=== PATIENT | female | born 1945 | race Caucasian/White ===

== ENCOUNTER 2018-08-19 17:51 | Inpatient (IN) | payer MEDICARE, OTHER ==
[~2018-08-19] VITALS: Ht 157.5 cm; Wt 70.8 kg
[2018-08-19] MEDS ORDERED: ACETAMINOPHEN 325 MG TABLET PO PRN (22:00)
[2018-08-19] MEDS ORDERED: MAGNESIUM HYDROXIDE 30 ML UDC PO PRN (22:00)
[2018-08-19] MEDS ORDERED: CYCL5TAB (22:20)
[2018-08-19] MEDS ORDERED: TRAM50TA2 (22:20)
[2018-08-19] MEDS ORDERED: ARIP10TA17 (22:20)
[2018-08-19] MEDS ORDERED: TRAZ-213 (22:20)
[2018-08-19] MEDS ORDERED: ALPR0.5T8 (22:20)
[2018-08-19] MEDS ORDERED: ALEN70TA45 (22:20)
[2018-08-19] MEDS ORDERED: DICL100G16 (22:20)
[2018-08-19] MEDS ORDERED: NAPR-1009 (22:20)
[2018-08-19] MEDS ORDERED: OXYC5TAB3 (22:20)
[2018-08-19] MEDS ORDERED: MODA100T14 (22:20)
[2018-08-19] MEDS ORDERED: LISD10CA (22:20)
[2018-08-19] MEDS ORDERED: BUPR100T5 (22:20)
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
--- NOTE | 2018-08-20 05:53 | NUR ---
GPS/RN DR. SIEGEL NOTIFIED VIA [employer] GROUP EXCHANGE OF ADMISSION. MEDICATIONS ARE IN THE SYSTEM READY TO BE RECONCILED.
[2018-08-20] MEDS: LORAZEPAM 0.5 MG TABLET PO PRN (06:44)
[2018-08-20 07:06] LABS: BASOPHILS % (AUTO) 0.7 % (0.0-2.0); EOSINOPHILS % (AUTO) 2.2 % (0.0-6.0); HEMATOCRIT 41 % (33-45); HEMOGLOBIN 13.6 g/dL (11.5-14.8); LYMPHOCYTES # (AUTO) 1.8 /CMM (0.8-4.8); LYMPHOCYTES % (AUTO) 33.3 % (20.0-44.0); MEAN CORPUSCULAR HGB CONC 33 g/dl (31.0-36.0); MEAN CORPUSCULAR VOLUME 97 fL (82-100); MONOCYTES # (AUTO) 0.5 /CMM (0.1-1.30); NEUTROPHILS # (AUTO) 2.9 /CMM (1.8-8.9); NEUTROPHILS % (AUTO) 54.8 % (43.0-81.0); PLATELET COUNT (AUTO) 280 /CMM (150-450); RDW COEFFICIENT OF VARIATION 14.1 (11.5-15.0); RED BLOOD CELL COUNT(AUTO) 4.22 MIL/uL (4.0-5.2); WHITE BLOOD COUNT (AUTO) 5.3 K/uL (4.3-11.0)
[2018-08-20 07:19] LABS: CARBON DIOXIDE 26 mmol/L (21-32); CHLORIDE 107 mmol/L (98-107); CREATININE 0.9 mg/dL (0.6-1.3); GLUCOSE 105 mg/dL (74-106); POTASSIUM 3.4 mmol/L (3.5-5.1); SODIUM SERUM 142 mmol/L (136-145); UREA NITROGEN, BLOOD 11 mg/dL (7-18)
[2018-08-20 07:23] LABS: ALBUMIN 3.2 g/dL (3.4-5.0); BILIRUBIN,DIRECT 0.1 mg/dL (0.0-0.2); BILIRUBIN,TOTAL 0.5 mg/dL (0.2-1.0); TOTAL PROTEIN, SERUM 6.6 g/dL (6.4-8.2)
[2018-08-20 08:00] VITALS: BP 136/71
[2018-08-20] MEDS ORDERED: POTASSIUM CHLORIDE 20 MEQ TAB.PRT.SR PO SCH (10:00)
[2018-08-20 16:00] VITALS: BP_SYST 121; BP_SYST 129; BP_DIAS 52; BP_DIAS 75
[2018-08-20] MEDS ORDERED: risperiDONE 1 MG TABLET PO SCH (17:30)
--- NOTE | 2018-08-20 19:30 | NUR ---
RECEIVED PATIENT IN BED. AO X 3, ABLE TO MAKE NEEDS KNOWN. NO ACUTE DISTRESS NOTED. DENIES ANY PAIN AT THIS TIME. SAFETY REMINDERS GIVEN. ON LOW BED WITH BILATERAL UPPER SIDE RAILS UP. CALL SUBRAMANIAN WITHIN EASY REACH. WILL CONTINUE TO MONITOR.
[2018-08-20 19:46] VITALS: BP 120/81
[2018-08-20 20:00] VITALS: BP 120/81
[2018-08-20] MEDS: MIRTAZAPINE 15 MG TABLET PO SCH (22:40)
--- NOTE | 2018-08-21 06:09 | NUR ---
PATIENT ASLEEP, EASILY AROUSABLE. RESPIRATIONS EVEN. NO SIGNS OF PAIN NOTED. DUE MED GIVEN WITH NO ASE NOTED. NEEDS ATTENDED. SAFETY PRECAUTIONS AND COMFORT MEASURES IN PLACE. WILL GIVE REPORT TO DAY SHIFT FOR CONTINUITY OF CARE.
[2018-08-21 06:57] LABS: CALCIUM, SERUM 9.1 mg/dL (8.5-10.1); CARBON DIOXIDE 29 mmol/L (21-32); CHLORIDE 110 mmol/L (98-107); CREATININE 0.9 mg/dL (0.6-1.3); GLUCOSE 89 mg/dL (74-106); POTASSIUM 4.2 mmol/L (3.5-5.1); SODIUM SERUM 145 mmol/L (136-145); UREA NITROGEN, BLOOD 8 mg/dL (7-18)
[2018-08-21 08:00] VITALS: BP 152/98
[2018-08-21] MEDS: risperiDONE 1 MG TABLET PO SCH ×2 (08:23→21:14)
[2018-08-21] MEDS: LORAZEPAM 0.5 MG TABLET PO PRN (08:23)
[2018-08-21] MEDS ORDERED: TRAMADOL HCL 50 MG TABLET PO PRN (14:00)
--- NOTE | 2018-08-21 14:25 | NUR ---
Initial Discharge Plan: Pt currently lives alone in an apartment located at [address] [place] [address], [address] [address]; ([phone]). Per pt, she is scared to return there if her neighbor is still there and would like to be placed in a facility. SW will work with the pt and the MD regarding appropriate discharge planning. SW will form a safe and proper discharge.
[2018-08-21 16:00] VITALS: BP 131/77
[2018-08-21 20:21] VITALS: BP 106/65
[2018-08-21] MEDS: MIRTAZAPINE 15 MG TABLET PO SCH (21:14)
[2018-08-21] MEDS: TEMAZEPAM 7.5 MG CAPSULE PO PRN (22:12)
[2018-08-22 08:00] VITALS: BP 134/89
[2018-08-22] MEDS: risperiDONE 1 MG TABLET PO SCH ×2 (08:58→21:17)
--- NOTE | 2018-08-22 12:34 | NUR ---
SW met with the pt who stated that she is interested in being discharged to a intermediate facility. Pt stated that she wants the SW to reach out to her contact center associate, Glory ([phone]).
--- NOTE | 2018-08-22 12:37 | NUR ---
ABDULAZIZ called the pt's friend, Glory ([phone]), and left a message on her voicemail asking for a call back.
[2018-08-22 16:00] VITALS: BP 115/79
[2018-08-22] MEDS: LORAZEPAM 1 MG TABLET PO PRN (16:38)
[2018-08-22 19:49] VITALS: BP 97/64
[2018-08-22] MEDS: MIRTAZAPINE 15 MG TABLET PO SCH (21:17)
[2018-08-22] MEDS: TEMAZEPAM 7.5 MG CAPSULE PO PRN (23:41)
[2018-08-23 08:00] VITALS: BP 115/74
[2018-08-23] MEDS: risperiDONE 1 MG TABLET PO SCH ×2 (08:30→21:08)
--- NOTE | 2018-08-23 11:31 | NUR ---
ABDULAZIZ called the pt's friend, Glory ([phone]), and informed her that the pt is in the hospital and that her plan consists of being transferred to a [facility]. ABDULAZIZ then transferred the call to the nurses station so that she could speak to the pt.
--- NOTE | 2018-08-23 12:15 | NUR ---
SW sent a referral for the pt to [facility] (fax number: [phone]) and to [facility] (fax number: [phone]) per Dr. Delgado.
[2018-08-23 16:04] VITALS: BP 135/86
[2018-08-23] MEDS: LORAZEPAM 1 MG TABLET PO PRN (16:40)
--- NOTE | 2018-08-23 16:40 | NUR ---
Pt. is anxious and prn of Ativan 0.5 mg po prn given
[2018-08-23 20:06] VITALS: BP 127/75
[2018-08-23] MEDS: MIRTAZAPINE 15 MG TABLET PO SCH (21:08)
[2018-08-24 08:00] VITALS: BP 136/96
[2018-08-24] MEDS: risperiDONE 1 MG TABLET PO SCH ×2 (08:11→21:31)
[2018-08-24] MEDS: LORAZEPAM 1 MG TABLET PO PRN (11:23)
--- NOTE | 2018-08-24 11:52 | NUR ---
Pt was accepted to [facility] per Debbi ([phone]).
--- NOTE | 2018-08-24 12:03 | NUR ---
ABDULAZIZ met with the pt who was concerned about the facilities that she could possibly be discharged to. The SW explained which facilities received a referral and what the process is like once a referral is sent. SW informed the pt that she would know which facilities accept her so that she can make a decision if she would like to.
--- NOTE | 2018-08-24 15:30 | NUR ---
Pt was accepted to [facility] per Flavio ([phone]).
[2018-08-24 16:00] VITALS: BP 100/69
[2018-08-24 20:00] VITALS: BP 106/71
[2018-08-24] MEDS: TEMAZEPAM 7.5 MG CAPSULE PO PRN (21:31)
[2018-08-24] MEDS: MIRTAZAPINE 15 MG TABLET PO SCH (21:31)
--- NOTE | 2018-08-24 21:32 | NUR ---
TEMAZEPAM 7.5 NG CAP PO GIVEN FOR SLEEP
[2018-08-24] MEDS: MAG HYDROX/AL HYDROX/SIMETH 30 ML UDC PO PRN (22:02)
--- NOTE | 2018-08-24 22:03 | NUR ---
C/O GASTRIC UPSET, MAALOX 30 ML PO GIVEN.
[2018-08-25 08:00] VITALS: BP 117/85
[2018-08-25] MEDS: risperiDONE 1 MG TABLET PO SCH ×2 (08:32→21:09)
[2018-08-25] MEDS ORDERED: ALENDRONATE 70 MG TABLET PO SCH (09:00)
[2018-08-25] MEDS: LORAZEPAM 1 MG TABLET PO PRN (09:58)
--- NOTE | 2018-08-25 10:00 | NUR ---
GPS RN NOTE: PT REQUESTING ATIVAN FOR ANXIETY, ATIVAN 0.5 MG PO PRN GIVEN WILL CONTINUE MONITORING.
[2018-08-25] MEDS: MAG HYDROX/AL HYDROX/SIMETH 30 ML UDC PO PRN (15:31)
[2018-08-25 16:00] VITALS: BP 134/83
[2018-08-25 20:00] VITALS: BP 127/84
[2018-08-25] MEDS: TEMAZEPAM 7.5 MG CAPSULE PO PRN (20:07)
--- NOTE | 2018-08-25 20:08 | NUR ---
TEMAZEPAM 7.5 MG 1 CAP PO GIVEN PER REQUEST BY PATIENT.
[2018-08-25] MEDS: MIRTAZAPINE 15 MG TABLET PO SCH (21:09)
[2018-08-26 08:00] VITALS: BP 113/76
[2018-08-26] MEDS: risperiDONE 1 MG TABLET PO SCH ×2 (08:42→21:19)
[2018-08-26] MEDS: LORAZEPAM 1 MG TABLET PO PRN (13:22)
--- NOTE | 2018-08-26 13:25 | NUR ---
RN-CO: PATIENT STATED " I'M EXTREMELY ANXIOUS. ATIVAN 0.5 MG PO GIVEN.
[2018-08-26 16:00] VITALS: BP 121/83
[2018-08-26 20:00] VITALS: BP 117/76
[2018-08-26] MEDS: TEMAZEPAM 7.5 MG CAPSULE PO PRN (20:36)
--- NOTE | 2018-08-26 20:37 | NUR ---
TEMAZEPAM 7.5 MG CAP PO GIVEN.
[2018-08-26] MEDS: MIRTAZAPINE 15 MG TABLET PO SCH (21:18)
[2018-08-26] MEDS: MAG HYDROX/AL HYDROX/SIMETH 30 ML UDC PO PRN (21:21)
--- NOTE | 2018-08-26 21:22 | NUR ---
MAALOX 30 ML PO GIVEN , C/O GASTRIC UPSET.
[2018-08-27] MEDS: risperiDONE 1 MG TABLET PO SCH ×2 (08:22→21:28)
--- NOTE | 2018-08-27 08:23 | NUR ---
GPS/RN PATIENT REPORTS GENERALIZED PAIN 06/29, ADMINISTERED ULTRAM 50 MG, WILL CONTINUE TO MONITOR
[2018-08-27 09:18] VITALS: BP 131/99
--- NOTE | 2018-08-27 15:56 | NUR ---
SW checked in with the pt and informed her that she will be discharging tomorrow. Pt seemed to be in a euthymic mood with a content affect due to the news of her discharge.
--- NOTE | 2018-08-27 15:57 | NUR ---
ABDULAZIZ called [facility] ([phone]) from [facility] to confirm that the pt has a bed for her discharge tomorrow.
[2018-08-27 16:35] VITALS: BP 106/71
[2018-08-27 20:35] VITALS: BP 109/77
[2018-08-27] MEDS: LORAZEPAM 1 MG TABLET PO PRN (21:25)
--- NOTE | 2018-08-27 21:25 | NUR ---
ATIVAN 0.5 MG TAB PO GIVEN FOR ANXIETY.
[2018-08-27] MEDS: TEMAZEPAM 7.5 MG CAPSULE PO PRN (22:41)
[2018-08-27] MEDS: MIRTAZAPINE 15 MG TABLET PO SCH (22:41)
--- NOTE | 2018-08-27 22:41 | NUR ---
TEMAZEPAM 7.5 MG PO GIVEN TO PT FOR SLEEP.
[2018-08-28 08:00] VITALS: BP 123/78
[2018-08-28] MEDS: risperiDONE 1 MG TABLET PO SCH (08:24)
[2018-08-28] MEDS: LORAZEPAM 1 MG TABLET PO PRN (10:18)
--- NOTE | 2018-08-28 10:32 | NUR ---
GPS RN NOTE: PT REQUESTING ATIVAN FOR ANXIETY, ATIVAN 0.5 MG PO PRN GIVEN WILL CONTINUE MONITORING.
[2018-08-28] MEDS ORDERED: LORAZEPAM 1 MG TABLET PO STA (13:59)
--- NOTE | 2018-08-28 14:02 | NUR ---
GPS PATHOLOGY TECH NOTE: PT DISCHARGE TO [facility] [address] [place] [address] PT A/O X3 ,AMBULATORY SELF CARE, DENIES SI/HI , COMPLIANT WITH MEDICATIONS, EXIT CARE DONE PRINTED SIGN AND GIVEN TO PT , ALL BELONGINGS AND VALUABLES RETURNED TO PT . REPORT GIVEN TO SNF NURSE LILLIAN. PT IN STABLE CONDITION NO S/S DISTRESS NOTED,SEEN BY DR LAZAR AND DR GUILLEN . AGREE AND AWARE OF DISCHARGE . SKIN INTACT.
--- NOTE | 2018-08-28 16:23 | NUR ---
Discharge Note: Pt was discharged to [facility] (SNF) located at [address] [place] [address]; . Pt was transported via [facility] (Trip #[id number]) at 1pm. Upon discharge, the pt denied having any suicidal or homicidal ideation and stated that she does not have any auditory or visual hallucinations. Pt appeared to be in a euthymic mood with an uplifted affect. She stated that she was excited to be going to this shelter and that she was relieved about leaving the hospital. Pt will be under the care of her psychiatrist, Dr. Delgado, located at [address] [place] [address]; and her transformer builder, Dr. Wenceslao Root, located at [address] [address], [place] [address]; .
== END 2018-08-28 14:00 | DRG 885 ==
LOC: GPS 20:35
PROVIDERS: ADMIT Psychiatry & Neurology Psychiatry; ATTEND Registered Nurse
DX: F23 Brief psychotic disorder (principal); F32.3 Major depressive disorder, single episode, severe with psychotic features; R45.851 Suicidal ideations; E03.9 Hypothyroidism, unspecified; E87.6 Hypokalemia; E78.5 Hyperlipidemia, unspecified; I10 Essential (primary) hypertension; M79.7 Fibromyalgia; M81.0 Age-related osteoporosis without current pathological fracture; G47.00 Insomnia, unspecified; Z88.2 Allergy status to sulfonamides; Z91.19 Patient's noncompliance with other medical treatment and regimen
CPT/HCPCS: 36415; 80048-TC; 80061-TC; 80076-TC; 85025-TC; 87081-TC

== ENCOUNTER 2019-03-25 14:36 | Inpatient (IN) | payer MEDICARE, OTHER ==
[~2019-03-25] VITALS: Ht 157.5 cm; Wt 58.1 kg
[~2019-03-25 14:36] MED LIST: ALEN70TA6; ALPR0.5T8; ARIP10TA17; BUPR100T5; CYCL5TAB; DICL100G16; LISD10CA; MODA100T14; NAPR-1009; OXYC5TAB3; TRAM50TA2; TRAZ-213
[2019-03-25] MEDS ORDERED: TRAM50TA2 PO (14:55)
[2019-03-25] MEDS ORDERED: ACET-868 PO (14:59)
[2019-03-25] MEDS ORDERED: ZOLPIDEM TARTRATE 5 MG TABLET PO PRN (15:00)
[2019-03-25] MEDS ORDERED: MAGNESIUM HYDROXIDE 30 ML UDC PO PRN (15:00)
[2019-03-25 16:54] VITALS: BP 121/75
--- NOTE | 2019-03-25 18:42 | NUR ---
RAISE DRILLER NOTE:ADMITTED A 73 Y/O FEMALE ON 5150 HOLD FOR DTS ,PER 5150 HOLD PATIENT REPORTED INTERMITENT SI WITH PLAN TO WALK IN FRONT OF A TRAIN .ON 1:1 ASSESSMENT PATIENT STATED "I AM VERY DEPRESSED I DON'T KNOW WHAT TO DO "PATIENT ALERT ,VERBALLY RESPONSIVE,ORIENTED X3 .DISHEVELED AND UNKEMPT ,PATIENT AMBULATORY AND SELF CARE ,MOOD DEPRESSED HX OF COLON CANCER AND FIBROMYALGIA ,PATIENT STATED I DON'T TAKE ANY MEDICATIONS . NOTIFIED WITH ADMISSION ORDERS .VS STABLE .PATIENT'S RIGHT HAND BOOK GIVEN AND EXPLAINED TO PATIENT ,ABLE TO VERBALIZE UNDERSTANDING ,START PATIENT ON Q15 MINUTES SAFTEY CHECK.
[2019-03-25 19:51] VITALS: BP 106/60
[2019-03-26 06:48] LABS: ALANINE AMINOTRANSFERASE 27 U/L (12-78); ALKALINE PHOSPHATASE 49 U/L (46-116); ASPARTATE AMINOTRANSFERASE 17 U/L (15-37); BILIRUBIN,TOTAL 0.5 mg/dL (0.2-1.0); CALCIUM, SERUM 8.8 mg/dL (8.5-10.1); CARBON DIOXIDE 27 mmol/L (21-32); CHLORIDE 106 mmol/L (98-107); CREATININE 0.8 mg/dL (0.6-1.3); GLUCOSE 95 mg/dL (74-106); SODIUM SERUM 142 mmol/L (136-145); TOTAL PROTEIN, SERUM 6.1 g/dL (6.4-8.2); UREA NITROGEN, BLOOD 12 mg/dL (7-18)
[2019-03-26 06:59] LABS: CHOLESTEROL 175 mg/dL (<200); HDL CHOLESTEROL 55 mg/dL (40-60); LDL 98 mg/dL (0-99); TRIGLYCERIDES 130 mg/dL (30-150)
[2019-03-26 08:00] VITALS: BP 110/74
[2019-03-26] MEDS: MAG HYDROX/AL HYDROX/SIMETH 30 ML UDC PO PRN ×3 (11:02→23:01)
--- NOTE | 2019-03-26 11:37 | NUR ---
GIVEN MAALOX FOR STOMACH BURNING AND MRSA SWAB DONE.
[2019-03-26] MEDS ORDERED: TRAMADOL HCL 50 MG TABLET PO PRN (12:00)
[2019-03-26] MEDS ORDERED: ACETAMINOPHEN 325 MG TABLET PO PRN (12:00)
--- NOTE | 2019-03-26 12:51 | NUR ---
GROUP NOTE: SW prompted pt to participate in group therapy, pt refused and stated she wanted to stay in her room because she had just finished having lunch and she was feeling sleepy. Pt stated that she would attempt to attend group tomorrow.
[2019-03-26] MEDS: PANTOPRAZOLE 40 MG TABLET.DR PO SCH ×3 (12:58→21:44)
[2019-03-26] MEDS: CALCIUM CARBONATE 500 MG TAB.CHEW PO SCH ×2 (12:58→20:50)
--- NOTE | 2019-03-26 15:00 | NUR ---
mrsa swab done and specimen sent for ua.
[2019-03-26 16:00] VITALS: BP 106/66
[2019-03-26] MEDS: LORAZEPAM 0.5 MG TABLET PO PRN (16:08)
--- NOTE | 2019-03-26 16:21 | NUR ---
psych consent signed,requesting new meds,informed meds to start at hs-given ativan 1 mg po.
--- NOTE | 2019-03-26 16:24 | NUR ---
second dose of maalox given.
[2019-03-26 16:46] LABS: APPEARANCE,URINE CLOUDY (CLEAR); BILIRUBIN,URINE NEGATIVE (NEGATIVE); BLOOD, URINE NEGATIVE Ery/uL (NEGATIVE); COLOR,URINE YELLOW (YELLOW); KETONES,URINE NEGATIVE (NEGATIVE); LEUKOCYTE ESTERASE ,URINE NEGATIVE (NEGATIVE); NITRITE, URINE NEGATIVE (NEGATIVE); PH,URINE 7.5 (5.0-8.0); PROTEIN,URINE NEGATIVE (NEGATIVE); UGLUCOSE NEGATIVE (NEGATIVE); UROBILINOGEN,URINE 0.2 EU/dL (0.2)
[2019-03-26 17:20] LABS: RBC,URINE 0-2 /HPF (0-2); WBC,URINE 0-3 /HPF (0-3)
[2019-03-26 17:21] LABS: BACTERIA,URINE Few /HPF (None Seen); SQUAMOUS EPITHELIAL CELL,UR Few /HPF (None Seen); URINE AMORPHOUS PHOSPHATES Many /HPF (None Seen)
[2019-03-26 19:55] VITALS: BP 115/63
[2019-03-26 20:00] VITALS: BP 115/63
--- NOTE | 2019-03-26 20:00 | NUR ---
GPS/RN NOTES RECEIVED PATIENT RESTING COMFORTABLY IN BED, ASLEEP AT THIS TIME. WILL MONITOR FOR ANY CHANGES.
[2019-03-26] MEDS: risperiDONE 0.25 MG TABLET PO SCH (21:24)
[2019-03-26] MEDS: ESCITALOPRAM OXALATE (10 MG) 10 MG TABLET PO SCH (21:24)
--- NOTE | 2019-03-26 23:03 | NUR ---
GPS/RN NOTES REQUESTED FOR MAALOX FOR UPSET STOMACH.
[2019-03-27 08:00] VITALS: BP 99/63
[2019-03-27] MEDS: LORAZEPAM 0.5 MG TABLET PO PRN (08:21)
[2019-03-27] MEDS: PANTOPRAZOLE 40 MG TABLET.DR PO SCH ×2 (08:21→21:15)
[2019-03-27] MEDS: CALCIUM CARBONATE 500 MG TAB.CHEW PO SCH ×2 (08:21→21:15)
--- NOTE | 2019-03-27 12:06 | NUR ---
ABDULAZIZ contacted Hannah ([phone]), optometrist/practice owner of [employer], and informed her that the pt is interested in placement once she is released from the hospital. Hannah came to assess the pt and stated that she would be willing to accept her.
--- NOTE | 2019-03-27 12:06 | NUR ---
Initial Discharge Plan: Pt currently resides in an apartment alone located at [address] [place] [address], [place] [address], [place] [address]; ([phone]). Per pt, she would like to return to her apartment and receive some board and care/independent living referrals. SW will work with the pt and the MD regarding appropriate discharge planning. SW will form a safe and proper discharge.
--- NOTE | 2019-03-27 12:21 | NUR ---
Group Note: Pt attended a group session on 03/27/19 at 11AM discussing the topic of what their goals are for when they are in the hospital and once they are discharged. S: Pt stated, My goal for when I am released from the hospital would be to manage my anxiety and depression. I felt like I was losing my mind. O: Pt was present during the group session and was cooperative. Pt appeared to be in a euthymic mood and presented with a calm affect. Pt maintained appropriate eye contact and her tone of voice appeared to be very calm and pleasant throughout the group. A: Pt understood that she needed to be compliant with her medications and the pt also discussed her need to be connected to her alee and her God. Pt understood that her medications assist her in handling her life and that her reliance on God helps her to not feel overwhelmed. SW discussed other coping mechanisms that the pt can utilize such as taking mindful walks and journaling. P: Pt will continue milieu treatment and medication stabilization.
[2019-03-27 16:00] VITALS: BP 108/68
[2019-03-27] MEDS: ACETAMINOPHEN 325 MG TABLET PO PRN (18:01)
[2019-03-27 20:00] VITALS: BP 109/60
[2019-03-27 20:27] VITALS: BP 109/60
[2019-03-27] MEDS: ESCITALOPRAM OXALATE (10 MG) 10 MG TABLET PO SCH (21:15)
[2019-03-27] MEDS: risperiDONE 0.25 MG TABLET PO SCH (21:15)
[2019-03-28] MEDS: LORAZEPAM 0.5 MG TABLET PO PRN (06:46)
[2019-03-28 08:00] VITALS: BP 111/76
--- NOTE | 2019-03-28 08:40 | NUR ---
GPS/NOTES PATIENT C/O CONSTIPATIONS. MOM 30ML GIVEN PRN ORDER.
[2019-03-28] MEDS: CALCIUM CARBONATE 500 MG TAB.CHEW PO SCH ×2 (09:05→20:47)
[2019-03-28] MEDS: PANTOPRAZOLE 40 MG TABLET.DR PO SCH ×2 (09:05→20:47)
[2019-03-28] MEDS: ACETAMINOPHEN 325 MG TABLET PO PRN (15:34)
--- NOTE | 2019-03-28 15:37 | NUR ---
GPS/RN-NOTES PATIENT C/O GENERALIZE BODY PAIN AND REQUESTING FOR TYLENOL. TYLENOL 650MG P.O GIVEN PRN ORDER.
--- NOTE | 2019-03-28 15:55 | NUR ---
Group Note: Pt was asked to participate in group therapy but the pt stated that she wanted to remain sleeping in her room.
[2019-03-28 16:00] VITALS: BP 101/69
[2019-03-28 20:00] VITALS: BP 107/54
[2019-03-28] MEDS: risperiDONE 0.25 MG TABLET PO SCH (20:47)
[2019-03-28] MEDS: ESCITALOPRAM OXALATE (10 MG) 10 MG TABLET PO SCH (20:47)
[2019-03-29] MEDS: LORAZEPAM 0.5 MG TABLET PO PRN ×2 (02:10→17:28)
[2019-03-29 08:00] VITALS: BP 111/69
[2019-03-29] MEDS: CALCIUM CARBONATE 500 MG TAB.CHEW PO SCH ×2 (08:18→21:20)
[2019-03-29] MEDS: PANTOPRAZOLE 40 MG TABLET.DR PO SCH ×2 (08:18→21:20)
--- NOTE | 2019-03-29 09:00 | NUR ---
GPS/RN PT REFUSED TO TAKE AM MEDS OFFERED X3 Addendum: 03/29/19 at 1143 by ELIEZER MCCAIN RN PT COMPLIANT WITH DAILY MEDS. THIS NOTE IS FOR DIFFERENT PATIENT
[2019-03-29] MEDS: ACETAMINOPHEN 325 MG TABLET PO PRN (11:58)
--- NOTE | 2019-03-29 14:39 | NUR ---
GROUP NOTE: SW attempted to prompt pt to come out of her room and attend group, pt was asleep and groaned when SW called her name. Per nurse, pt had requested to take a Klonopin.
[2019-03-29 16:00] VITALS: BP 103/64
--- NOTE | 2019-03-29 19:30 | NUR ---
GPS RN NOTE, RECEIVED PATIENT AWAKE AND IN ROOM NO S/S OR COMPLAINTS OF PAIN AT THIS TIME. PATIENT IS DISPLAYING NO S/S OF APPARENT DISTRESS AT THIS TIME. PATIENT BREATHING IS UNLABORED WITH EQUAL RISE AND FALL OF THE CHEST. PATIENT IS ALERT AND ORIENTED X 1 ON ROOM AIR WITH A SPO2 OF 95%. PATIENT IS MED COMPLAINT, ANXIOUS, DISORGANIZED, COOPERATIVE, ISOLATIVE, AND NEEDS REORIENTATION. PATIENT IS CONFUSED BUT DENIES SUICIDE AND HOMICIDAL IDEATIONS AT THIS TIME. PATIENT ASSISTED WITH TURNING AND REPOSITIONING Q2HR AND PRN FOR COMFORT AND CIRCULATION. PATIENT HAS NO NEEDS AT THIS TIME. PATIENT EDUCATED ON THE USE OF THE CALL SUBRAMANIAN. PATIENT BED SIDE RAILS ARE UP X 2 FOR SAFETY, BED IS LOCKED AND LOW. WILL CONTINUE TO MONITOR AND MAINTAIN SAFETY Q15 MIN WITH THE HELP OF STAFF.
[2019-03-29 20:00] VITALS: BP 119/78
[2019-03-29] MEDS: risperiDONE 0.25 MG TABLET PO SCH (21:20)
[2019-03-29] MEDS: ESCITALOPRAM OXALATE (10 MG) 10 MG TABLET PO SCH (21:24)
[2019-03-30 08:00] VITALS: BP 110/74
[2019-03-30] MEDS: PANTOPRAZOLE 40 MG TABLET.DR PO SCH ×2 (08:48→20:36)
[2019-03-30] MEDS: CALCIUM CARBONATE 500 MG TAB.CHEW PO SCH ×2 (08:48→20:36)
[2019-03-30] MEDS: LORAZEPAM 0.5 MG TABLET PO PRN ×2 (10:45→20:38)
[2019-03-30 16:00] VITALS: BP 105/59
[2019-03-30] MEDS: ACETAMINOPHEN 325 MG TABLET PO PRN (19:14)
[2019-03-30 20:05] VITALS: BP 113/70
[2019-03-30] MEDS: ESCITALOPRAM OXALATE (10 MG) 10 MG TABLET PO SCH (21:14)
[2019-03-30] MEDS: risperiDONE 0.25 MG TABLET PO SCH (21:14)
[2019-03-31] MEDS: LORAZEPAM 0.5 MG TABLET PO PRN ×2 (06:56→10:05)
[2019-03-31 08:00] VITALS: BP 109/71
[2019-03-31] MEDS: PANTOPRAZOLE 40 MG TABLET.DR PO SCH ×2 (09:39→21:05)
[2019-03-31] MEDS: CALCIUM CARBONATE 500 MG TAB.CHEW PO SCH ×2 (09:39→21:05)
[2019-03-31 16:00] VITALS: BP 105/65
[2019-03-31 20:01] VITALS: BP 96/65
[2019-03-31] MEDS: risperiDONE 0.25 MG TABLET PO SCH (21:05)
[2019-03-31] MEDS: ESCITALOPRAM OXALATE (10 MG) 10 MG TABLET PO SCH (21:05)
[2019-04-01 08:00] VITALS: BP 122/77
[2019-04-01] MEDS: LORAZEPAM 0.5 MG TABLET PO PRN ×2 (08:19→18:35)
[2019-04-01] MEDS: PANTOPRAZOLE 40 MG TABLET.DR PO SCH ×2 (08:19→20:48)
[2019-04-01] MEDS: CALCIUM CARBONATE 500 MG TAB.CHEW PO SCH ×2 (08:19→20:48)
[2019-04-01] MEDS: ACETAMINOPHEN 325 MG TABLET PO PRN (10:21)
--- NOTE | 2019-04-01 10:45 | NUR ---
Adele ([phone]) from [facility] came to assess the pt and stated that she was approved for their independent living. SW stated that she would inform her when the pt is discharged and if the pt still has the plan to be discharged home first.
--- NOTE | 2019-04-01 14:17 | NUR ---
Group note: Pt attended a group session on 04/01/19 at 11AM discussing the topic of what has caused their admission to the hospital and what contributes to their discharge plan. S: Pt stated, I am isolating in my room because I just feel too overwhelmed. I lay there having thoughts such as my house is burning down and other thoughts about my life falling apart. I try to talk to God as well when I am laying there because I think that is a useful way for me to spend time than coming out into the activities room. O: Pt was present during the group session and was attentive and cooperative when redirected. Pt appeared to be in a euthymic mood and presented with a flat affect. Pt maintained appropriate eye contact throughout the group. A: Pt gained awareness on the importance of having a support system to assist when life appears too overwhelming. SW recognized that the pt is in need of an aftercare provider such as a psychiatrist and could benefit from an outpatient program. P: Pt will continue milieu treatment and medication stabilization.
[2019-04-01 16:00] VITALS: BP 118/64
[2019-04-01 19:47] VITALS: BP 115/64
[2019-04-01] MEDS: risperiDONE 0.25 MG TABLET PO SCH (21:26)
[2019-04-01] MEDS: ESCITALOPRAM OXALATE (10 MG) 10 MG TABLET PO SCH (21:26)
[2019-04-02] MEDS: LORAZEPAM 0.5 MG TABLET PO PRN (06:26)
[2019-04-02 08:00] VITALS: BP 111/62
[2019-04-02] MEDS: PANTOPRAZOLE 40 MG TABLET.DR PO SCH ×2 (08:12→22:01)
[2019-04-02] MEDS: CALCIUM CARBONATE 500 MG TAB.CHEW PO SCH ×2 (08:12→22:01)
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
--- NOTE | 2019-04-02 15:41 | NUR ---
GPS RN NOTE: NEW T.O. ORDER DR LAAZR ATIVAN 0.5 MG PO PRN NTE 2 DOSE IN 24 HR ORDER PLACED AND CARED OUT.
[2019-04-02 16:00] VITALS: BP 117/82
--- NOTE | 2019-04-02 19:30 | NUR ---
GPS RN NOTE, RECEIVED PATIENT AWAKE AND IN ROOM NO S/S OR COMPLAINTS OF PAIN AT THIS TIME. PATIENT IS DISPLAYING NO S/S OF APPARENT DISTRESS AT THIS TIME. PATIENT BREATHING IS UNLABORED WITH EQUAL RISE AND FALL OF THE CHEST. PATIENT IS ALERT AND ORIENTED X 3 ON ROOM AIR WITH A SPO2 OF 95%. PATIENT IS MED COMPLAINT, ANXIOUS, DISORGANIZED, COOPERATIVE, ISOLATIVE, AND NEEDS REORIENTATION. PATIENT DENIES SUICIDE AND HOMICIDAL IDEATIONS AT THIS TIME. PATIENT ASSISTED WITH TURNING AND REPOSITIONING Q2HR AND PRN FOR COMFORT AND CIRCULATION. PATIENT HAS NO NEEDS AT THIS TIME. PATIENT EDUCATED ON THE USE OF THE CALL SUBRAMANIAN. PATIENT BED SIDE RAILS ARE UP X 2 FOR SAFETY, BED IS LOCKED AND LOW. WILL CONTINUE TO MONITOR AND MAINTAIN SAFETY Q15 MIN WITH THE HELP OF STAFF.
[2019-04-02 19:49] VITALS: BP 99/67
[2019-04-02] MEDS: ESCITALOPRAM OXALATE (10 MG) 10 MG TABLET PO SCH (22:01)
[2019-04-02] MEDS: risperiDONE 0.25 MG TABLET PO SCH (22:01)
[2019-04-02] MEDS: ACETAMINOPHEN 325 MG TABLET PO PRN (22:01)
--- NOTE | 2019-04-02 22:01 | NUR ---
GPS RN NOTE, PATIENT HAS A COMPLAINT OF GENERALIZED PAIN AT 3 OUT 10 ON THE PAIN SCALE AND IS REQUESTING TYLENOL AT THIS TIME. PATIENT VITAL SIGNS ARE STABLE. GAVE TYLENOL 650MG PO Q6HR PRN. WILL REASSESS PAIN AND I WILL CONTINUE TO MONITOR THIS PATIENT.
[2019-04-03] MEDS: LORAZEPAM 0.5 MG TABLET PO PRN ×2 (06:44→19:56)
--- NOTE | 2019-04-03 06:44 | NUR ---
GPS RN NOTE, PATIENT HAS A COMPLAINT OF FEELING ANXIOUS AND IS REQUESTING ATIVAN AT THIS TIME. PATIENT VITAL SIGNS ARE STABLE. GAVE ATIVAN 0.5MG PO Q6HR PRN ORDERED. WILL REASSESS FOR ANXIETY AND I WILL CONTINUE TO MONITOR THIS PATIENT.
[2019-04-03 08:00] VITALS: BP 100/63
[2019-04-03] MEDS: PANTOPRAZOLE 40 MG TABLET.DR PO SCH ×2 (08:27→21:12)
[2019-04-03] MEDS: CALCIUM CARBONATE 500 MG TAB.CHEW PO SCH ×2 (08:27→21:12)
--- NOTE | 2019-04-03 15:04 | NUR ---
Group note: Pt attended a group session on 04/03/19 at 1:30PM discussing the topic of their substance abuse/abusing prescription medication as well as the importance of being compliant with their medications. S: Pt stated, I benefit a great deal from my medications. They help me with my depression and anxiety and I rely on them. I would never even think about being noncompliant with my medications. O: Pt was present during the group session and was attentive and cooperative. Pt appeared to be in a euthymic mood and presented with an anxious affect. Pt maintained appropriate eye contact throughout the group. A: Pt expressed the importance of being compliant with her medications and gained awareness that her medications are not the only aspect that is going to help with her depression and anxiety. Pt understood that having a support system and relying on herself to want to be better makes an impact as well. P: Pt will continue milieu treatment and medication stabilization.
[2019-04-03 16:00] VITALS: BP 119/77
[2019-04-03] MEDS: ACETAMINOPHEN 325 MG TABLET PO PRN (18:07)
[2019-04-03 19:57] VITALS: BP 122/77
[2019-04-03] MEDS: ESCITALOPRAM OXALATE (10 MG) 10 MG TABLET PO SCH (21:12)
[2019-04-03] MEDS: risperiDONE 0.25 MG TABLET PO SCH (21:13)
[2019-04-04 08:00] VITALS: BP 114/73
[2019-04-04] MEDS: PANTOPRAZOLE 40 MG TABLET.DR PO SCH ×2 (08:03→20:42)
[2019-04-04] MEDS: CALCIUM CARBONATE 500 MG TAB.CHEW PO SCH ×2 (08:03→20:42)
[2019-04-04] MEDS: LORAZEPAM 0.5 MG TABLET PO PRN (08:50)
[2019-04-04] MEDS: busPIRone 5 MG TABLET PO SCH ×3 (10:36→16:16)
--- NOTE | 2019-04-04 15:39 | NUR ---
SW called [facility] ([phone]) and made a psychiatric appointment for the pt for April 30 at 12pm.
[2019-04-04 16:00] VITALS: BP 122/72
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
[2019-04-04] MEDS: ACETAMINOPHEN 325 MG TABLET PO PRN (17:46)
[2019-04-04 20:00] VITALS: BP 100/64
[2019-04-04] MEDS: ESCITALOPRAM OXALATE (10 MG) 10 MG TABLET PO SCH (20:41)
[2019-04-04] MEDS: risperiDONE 0.25 MG TABLET PO SCH (20:41)
[2019-04-05] MEDS: ACETAMINOPHEN 325 MG TABLET PO PRN (05:07)
--- NOTE | 2019-04-05 05:14 | NUR ---
RN NOTES COMPLAINED OF GENERALIZED PAIN AND ASKING FOR TYLENOL, TYLENOL 650MG PO GIVEN ORDERED
[2019-04-05 08:22] VITALS: BP 125/79
[2019-04-05] MEDS: busPIRone 5 MG TABLET PO SCH ×2 (08:24→13:00)
[2019-04-05] MEDS: CALCIUM CARBONATE 500 MG TAB.CHEW PO SCH (08:24)
[2019-04-05] MEDS: PANTOPRAZOLE 40 MG TABLET.DR PO SCH (08:24)
--- NOTE | 2019-04-05 09:37 | NUR ---
ABDULAZIZ faxed a home health referral to [facility] to the fax number: [phone].
--- NOTE | 2019-04-05 13:10 | NUR ---
GPS DISCHARGE NOTE: PT DISCHARGED BACK HOME TO [place] [address] [place] [address]. PT IN STABLE CONDITION NO S/S DISTRESS NOTED. VSS, PT DENIES SI/HI AVH, DENIES FEELING DEPRESSED, EXIT CARE DONE, PRINTED, SIGN AND GIVEN TO PT. PRESCRIPTION GIVEN , EXPLAIN TO PT, ALL BELONGINGS AND VALUABLES RETURNED TO PT, SKIN INTACT.
--- NOTE | 2019-04-05 13:25 | NUR ---
Discharge Note: Pt was discharged back home to her apartment [place] at [address] [place] [address]; ([phone]). Pt was transported via taxi around 1pm. Upon discharge, the pt appeared to be in a euthymic mood and presented with anxious affect. Pt denied suicidal and homicidal ideation as well as auditory and visual hallucinations. Pt was provided with a home health referral as well as referrals to independent livings. Pt will continue to be under the care of [facility] located at [address] [place] [address]; and has an appointment set for April 30. Pt will also continue to be under the care of her cement boat and barge loader, Dr. Perales, located at [address] [place] [address]; ; a fax was sent to: .
== END 2019-04-05 13:00 | disposition home or self-care (01) | DRG 885 ==
LOC: GPS 14:36
PROVIDERS: ADMIT Psychiatry & Neurology Psychiatry
DX: F33.2 Major depressive disorder, recurrent severe without psychotic features (principal); R45.851 Suicidal ideations; F23 Brief psychotic disorder; I10 Essential (primary) hypertension; E78.5 Hyperlipidemia, unspecified; E03.9 Hypothyroidism, unspecified; Z88.2 Allergy status to sulfonamides; F41.9 Anxiety disorder, unspecified; M79.7 Fibromyalgia; M81.0 Age-related osteoporosis without current pathological fracture; G47.00 Insomnia, unspecified; Z85.038 Personal history of other malignant neoplasm of large intestine
CPT/HCPCS: 36415; 80053-TC; 80061-TC; 81000-TC; 87081-TC